=== PATIENT | female | born 1985 | race Caucasian/White ===

== ENCOUNTER 2017-08-24 17:57 | Emergency (ER) | payer OTHER ==
[~2017-08-24] VITALS: Ht 165.1 cm; Wt 100.5 kg
[~2017-08-24 17:57] MED LIST: "\\\"WATER PILL\\\""; ASCO500 PO; CALC.25 PO; CALCAVITD PO; CHOL10002 PO; Cyclobenzaprine5 MG PO; Ferosul325 MG PO; HYDR1TAB94 PO; IODPOTL TOP; LEVSOD100 PO; LEVSOD150 PO; LEVSOD50 PO; LEVSOD75 PO; LIDO700A20 TOP; LIOT50 PO; METHI10 PO; METO25ER PO; OXYACE5T PO; POTA10T PO; POTCHL20ER PO; TRAM50 PO; TUMS DUAL ACTI1 EACH; TUMS300 MG PO
[2017-08-24 18:50] LABS: BASOPHILS ABSOLUTE AUTO 0.03 K/mm3 (0.00-0.23); BASOPHILS PERCENT AUTO 0 % (0-2); EOSINOPHILS ABSOLUTE AUTO 0.17 K/mm3 (0.00-0.68); EOSINOPHILS PERCENT AUTO 2 % (0-6); Hematocrit 35.9 % (33.0-51.0); Hemoglobin 11.7 g/dL (11.5-16.0); IMMATURE GRAN ABSOLUTE AUTO 0.01 K/mm3 (0.00-0.10); IMMATURE GRAN PERCENT AUTO 0 % (0-1); LYMPHOCYTES ABSOLUTE AUTO 2.18 K/mm3 (0.84-5.20); LYMPHOCYTES PERCENT AUTO 25 % (21-46); MONOCYTES ABSOLUTE AUTO 0.32 K/mm3 (0.16-1.47); MONOCYTES PERCENT AUTO 4 % (4-13); Mean Corpuscular HGB 25.3 pg (26.0-34.0); Mean Corpuscular HGB Conc 32.6 g/dL (31.5-36.5); Mean Corpuscular Volume 78 fL (80-100); Mean Platelet Volume 9.8 fL (9.1-12.4); NEUTROPHILS ABSOLUTE AUTO 5.88 K/mm3 (1.96-9.15); NEUTROPHILS PERCENT AUTO 69 % (41-73); Platelet Count 393 K/mm3 (150-400); RDW Coefficient Variation 13.4 % (11.7-14.2); Red Blood Cell Count 4.62 M/mm3 (3.80-5.20); White Blood Cell Count 8.59 K/mm3 (4.00-11.30)
[2017-08-24 19:09] LABS: Alanine Aminotransfer (ALT/SGP 21 U/L (12-78); Albumin, Blood 3.5 g/dL (3.4-5.0); Albumin/Globulin Ratio 0.8 (0.8-1.8); Alk Phos 79 U/L (50-136); Anion Gap 10 mmol/L (6-16); Aspartate Aminotrans (AST/SGOT 22 U/L (12-37); Bilirubin, Total 0.3 mg/dL (0.1-1.0); Blood Urea Nitrogen 10 mg/dL (8-24); Bun/Creatinine Ratio 13.6 (12.0-20.0); CO2, Blood 27 mmol/L (21-32); Chloride, Blood 102 mmol/L (98-108); Creatinine, Blood 0.74 mg/dL (0.40-1.00); Free Thyroxine 0.49 ng/dL (0.70-1.60); Globulin, Blood 4.4 g/dL (2.2-4.0); Glomerular Filtration Rate >60 (60-); Glucose, Blood 99 mg/dL (70-99); Potassium, Blood 3.5 mmol/L (3.5-5.5); Sodium, Blood 139 mmol/L (136-145); Total Protein, Blood 7.9 g/dL (6.4-8.2)
[2017-08-24 19:15] LABS: Magnesium, Blood 1.8 mg/dL (1.6-2.4); Phosphorus, Blood 4.4 mg/dL (2.5-4.9); Triiodothyronine, Free 1.33 pg/mL (2.18-3.98)
== END 2017-08-24 22:51 | disposition home or self-care (01) ==
LOC: ER 17:57
PROVIDERS: Physician Assistant
DX: E20.9 Hypoparathyroidism, unspecified (principal); E03.9 Hypothyroidism, unspecified; Z79.899 Other long term (current) drug therapy; F17.290 Nicotine dependence, other tobacco product, uncomplicated
CPT/HCPCS: 80053; 83735; 83970; 84100; 84439; 84443; 84481; 85025; 93005; 93010; 96365; 96366; 96368; 99283; J0610; J3475

== ENCOUNTER → 2017-09-12 | Outpatient (CLI) | payer OTHER ==
[~2017-09-12] MED LIST changes: +Advil200 M1 PO; +Phentermine HCl30 MG PO; +TUMS200 MG PO; +Vitamin D2000 UNIT PO
[2017-09-12 11:48] LABS: BASOPHILS ABSOLUTE AUTO 0.01 K/mm3 (0.00-0.23); BASOPHILS PERCENT AUTO 0 % (0-2); EOSINOPHILS ABSOLUTE AUTO 0.03 K/mm3 (0.00-0.68); EOSINOPHILS PERCENT AUTO 1 % (0-6); Hematocrit 36.4 % (33.0-51.0); Hemoglobin 12.3 g/dL (11.5-16.0); IMMATURE GRAN ABSOLUTE AUTO 0.01 K/mm3 (0.00-0.10); IMMATURE GRAN PERCENT AUTO 0 % (0-1); LYMPHOCYTES ABSOLUTE AUTO 0.66 K/mm3 (0.84-5.20); LYMPHOCYTES PERCENT AUTO 12 % (21-46); MONOCYTES ABSOLUTE AUTO 0.35 K/mm3 (0.16-1.47); MONOCYTES PERCENT AUTO 6 % (4-13); Mean Corpuscular HGB 26.3 pg (26.0-34.0); Mean Corpuscular HGB Conc 33.8 g/dL (31.5-36.5); Mean Corpuscular Volume 78 fL (80-100); Mean Platelet Volume 9.6 fL (9.1-12.4); NEUTROPHILS ABSOLUTE AUTO 4.46 K/mm3 (1.96-9.15); NEUTROPHILS PERCENT AUTO 81 % (41-73); Platelet Count 287 K/mm3 (150-400); RDW Coefficient Variation 14.4 % (11.7-14.2); RDW Standard Deviation 40.1 fL (35.1-46.3); Red Blood Cell Count 4.68 M/mm3 (3.80-5.20); White Blood Cell Count 5.52 K/mm3 (4.00-11.30)
[2017-09-12 12:07] LABS: Alanine Aminotransfer (ALT/SGP 25 U/L (12-78); Albumin/Globulin Ratio 0.9 (0.8-1.8); Alk Phos 80 U/L (40-126); Anion Gap 12 mmol/L (6-16); Aspartate Aminotrans (AST/SGOT 20 U/L (12-37); Bilirubin, Total 0.4 mg/dL (0.1-1.0); Blood Urea Nitrogen 13 mg/dL (8-24); Bun/Creatinine Ratio 14.1 (12.0-20.0); CO2, Blood 27 mmol/L (21-32); Calcium, Blood 7.5 mg/dL (8.5-10.1); Chloride, Blood 100 mmol/L (98-108); Creatinine, Blood 0.92 mg/dL (0.40-1.00); Globulin, Blood 4.5 g/dL (2.2-4.0); Glomerular Filtration Rate >60 (60-); Glucose, Blood 94 mg/dL (70-99); Potassium, Blood 3.7 mmol/L (3.5-5.5); Sodium, Blood 139 mmol/L (136-145); Total Protein, Blood 8.5 g/dL (6.4-8.2)
== END ==
LOC: LAB SHORT 11:44 → LAB EV 11:44
PROVIDERS: General Practice
DX: E20.9 Hypoparathyroidism, unspecified (principal); R53.81 Other malaise; J02.9 Acute pharyngitis, unspecified
CPT/HCPCS: 80053; 83970; 85025; 87070

== ENCOUNTER 2018-03-09 11:10 | Inpatient (IN) | payer OTHER ==
[~2018-03-09] VITALS: Ht 165.1 cm; Wt 92.8 kg
[~2018-03-09 11:10] MED LIST changes: -Advil200 M1 PO; -Phentermine HCl30 MG PO; -TUMS200 MG PO; -Vitamin D2000 UNIT PO
[2018-03-09 11:45] LABS: Calcium, Ionized (POC) 0.69 mmol/L (1.10-1.46); Chloride (POC) 99 mmol/L (98-108); Creatinine (POC) 0.6 mg/dL (0.6-1.0); Glucose (ISTAT POC) 95 mg/dL (70-99); Hemoglobin (POC) 11.6 g/dL (12.0-16.0); Potassium (POC) 3.5 mmol/L (3.5-5.5); Sodium (POC) 140 mmol/L (135-148); Total CO2 (POC) 25 mmol/L (21-32)
[2018-03-09] MEDS ORDERED: CALC.25 PO (11:55)
[2018-03-09] MEDS ORDERED: Phentermine HCl30 MG PO (11:56)
[2018-03-09 12:11] LABS: Magnesium, Blood 1.7 mg/dL (1.6-2.4); Thyroxine (T4) 12.1 ug/dL (4.8-13.9)
[2018-03-09 12:14] LABS: Thyroid Stimulating Hormone 0.087 uIU/mL (0.360-4.800)
[2018-03-09 12:17] LABS: Alanine Aminotransfer (ALT/SGP 22 U/L (12-78); Albumin, Blood 3.3 g/dL (3.4-5.0); Albumin/Globulin Ratio 0.8 (0.8-1.8); Alk Phos 67 U/L (50-136); Anion Gap 10 mmol/L (6-16); Aspartate Aminotrans (AST/SGOT 18 U/L (12-37); Bilirubin, Total 0.3 mg/dL (0.1-1.0); Blood Urea Nitrogen 12 mg/dL (8-24); Bun/Creatinine Ratio 19.7 (12.0-20.0); CO2, Blood 26 mmol/L (21-32); Calcium, Blood 5.4 mg/dL (8.5-10.1); Chloride, Blood 104 mmol/L (98-108); Creatinine, Blood 0.61 mg/dL (0.40-1.00); Globulin, Blood 4.3 g/dL (2.2-4.0); Glomerular Filtration Rate >60 (60-); Glucose, Blood 89 mg/dL (70-99); Phosphorus, Blood 4.9 mg/dL (2.5-4.9); Potassium, Blood 3.6 mmol/L (3.5-5.5); Sodium, Blood 140 mmol/L (136-145); Total Protein, Blood 7.6 g/dL (6.4-8.2)
[2018-03-09] MEDS ORDERED: TUMS200 MG PO (14:36)
[2018-03-10 05:54] LABS: Anion Gap 8 mmol/L (6-16); Blood Urea Nitrogen 10 mg/dL (8-24); Bun/Creatinine Ratio 13.8 (12.0-20.0); CO2, Blood 30 mmol/L (21-32); Calcium, Blood 6.9 mg/dL (8.5-10.1); Chloride, Blood 103 mmol/L (98-108); Creatinine, Blood 0.72 mg/dL (0.40-1.00); Glomerular Filtration Rate >60 (60-); Glucose, Blood 80 mg/dL (70-99); Magnesium, Blood 1.8 mg/dL (1.6-2.4); Potassium, Blood 3.2 mmol/L (3.5-5.5); Sodium, Blood 141 mmol/L (136-145)
[2018-03-11 05:49] LABS: Albumin, Blood 3.2 g/dL (3.4-5.0); Anion Gap 7 mmol/L (6-16); Blood Urea Nitrogen 8 mg/dL (8-24); Bun/Creatinine Ratio 11.3 (12.0-20.0); CO2, Blood 30 mmol/L (21-32); Chloride, Blood 102 mmol/L (98-108); Creatinine, Blood 0.71 mg/dL (0.40-1.00); Glomerular Filtration Rate >60 (60-); Glucose, Blood 91 mg/dL (70-99); Phosphorus, Blood 6.2 mg/dL (2.5-4.9); Potassium, Blood 3.9 mmol/L (3.5-5.5); Sodium, Blood 139 mmol/L (136-145)
[2018-03-11] MEDS ORDERED: Vitamin D2000 UNIT PO (10:03)
[2018-03-11] MEDS ORDERED: Advil200 M1 PO (10:03)
== END 2018-03-11 10:22 | disposition home or self-care (01) | DRG 641 ==
LOC: ER 11:10 → MEDS 11:11 → ENPENDDIS 03-11 09:38 → MEDS 03-11 10:22
PROVIDERS: Hospitalist; Internal Medicine; Physician Assistant
DX: E83.51 Hypocalcemia (principal); N25.81 Secondary hyperparathyroidism of renal origin; G43.909 Migraine, unspecified, not intractable, without status migrainosus; E55.9 Vitamin D deficiency, unspecified; E89.0 Postprocedural hypothyroidism; F17.210 Nicotine dependence, cigarettes, uncomplicated; Z79.899 Other long term (current) drug therapy
CPT/HCPCS: 36415; 80047; 80048; 80053; 80069; 82306; 82330; 83735; 84100; 84436; 84443; 85014; 93005; 93010; 96365; 96375; 99285-25; G0378; J0610; J2405; J2765; J3360; J7030

== ENCOUNTER 2018-07-13 11:44 | Emergency (ER) | payer OTHER ==
[~2018-07-13] VITALS: Ht 167.6 cm; Wt 99.8 kg
[~2018-07-13 11:44] MED LIST changes: +Advil200 M1 PO; +Phentermine HCl30 MG PO; +TUMS200 MG PO; +Vitamin D2000 UNIT PO
[2018-07-13 12:27] LABS: BASOPHILS ABSOLUTE AUTO 0.03 K/mm3 (0.00-0.23); BASOPHILS PERCENT AUTO 1 % (0-2); EOSINOPHILS ABSOLUTE AUTO 0.09 K/mm3 (0.00-0.68); EOSINOPHILS PERCENT AUTO 2 % (0-6); IMMATURE GRAN ABSOLUTE AUTO 0.02 K/mm3 (0.00-0.10); IMMATURE GRAN PERCENT AUTO 0 % (0-1); LYMPHOCYTES ABSOLUTE AUTO 1.52 K/mm3 (0.84-5.20); LYMPHOCYTES PERCENT AUTO 26 % (21-46); MONOCYTES ABSOLUTE AUTO 0.25 K/mm3 (0.16-1.47); MONOCYTES PERCENT AUTO 4 % (4-13); Mean Corpuscular HGB 27.3 pg (26.0-34.0); Mean Corpuscular HGB Conc 32.4 g/dL (31.5-36.5); Mean Corpuscular Volume 84 fL (80-100); Mean Platelet Volume 9.5 fL (9.1-12.4); NEUTROPHILS ABSOLUTE AUTO 4.03 K/mm3 (1.96-9.15); NEUTROPHILS PERCENT AUTO 68 % (41-73); Platelet Count 309 K/mm3 (150-400); RDW Coefficient Variation 14.1 % (11.7-14.2); RDW Standard Deviation 43.5 fL (35.1-46.3); White Blood Cell Count 5.94 K/mm3 (4.00-11.30)
[2018-07-13 12:54] LABS: Alanine Aminotransfer (ALT/SGP 18 U/L (12-78); Albumin, Blood 3.7 g/dL (3.4-5.0); Albumin/Globulin Ratio 0.8 (0.8-1.8); Alk Phos 76 U/L (50-136); Anion Gap 8 mmol/L (6-16); Aspartate Aminotrans (AST/SGOT 19 U/L (12-37); Bilirubin, Total 0.4 mg/dL (0.1-1.0); Blood Urea Nitrogen 12 mg/dL (8-24); CO2, Blood 28 mmol/L (21-32); Calcium, Blood 6.1 mg/dL (8.5-10.1); Chloride, Blood 103 mmol/L (98-108); Creatinine, Blood 0.86 mg/dL (0.40-1.00); Free Thyroxine 0.71 ng/dL (0.70-1.60); Globulin, Blood 4.4 g/dL (2.2-4.0); Glomerular Filtration Rate >60 (60-); Glucose, Blood 84 mg/dL (70-99); Potassium, Blood 3.9 mmol/L (3.5-5.5); Sodium, Blood 139 mmol/L (136-145); Total Protein, Blood 8.1 g/dL (6.4-8.2)
[2018-07-13] MEDS ORDERED: MECL12.5 PO (15:30)
== END 2018-07-13 15:43 | disposition home or self-care (01) ==
LOC: ER 11:44
PROVIDERS: Physician Assistant
DX: E20.9 Hypoparathyroidism, unspecified (principal); E05.00 Thyrotoxicosis with diffuse goiter without thyrotoxic crisis or storm; E89.0 Postprocedural hypothyroidism; F17.210 Nicotine dependence, cigarettes, uncomplicated
CPT/HCPCS: 36415; 80053; 84439; 84443; 85025; 93005; 93010; 96365; 96375; 99284-25; J0610; J2405; J7030

== ENCOUNTER 2018-07-16 00:03 | Day surgery (SDC) | payer OTHER ==
[~2018-07-16 00:03] MED LIST changes: +MECL12.5 PO
[2018-07-16] MEDS ORDERED: CALCIUM CITRAT PO (14:24)
== END 2018-07-16 15:55 | disposition home or self-care (01) ==
LOC: ATC 00:03
DX: E83.51 Hypocalcemia (principal)
CPT/HCPCS: 82310; 96365; J0610; J7030

== ENCOUNTER 2018-07-30 00:15 | Day surgery (SDC) | payer OTHER ==
[~2018-07-30 00:15] MED LIST changes: +CALCIUM CITRAT PO
== END 2018-07-30 11:40 | disposition home or self-care (01) ==
LOC: ATC 00:15
DX: E83.51 Hypocalcemia (principal); E03.9 Hypothyroidism, unspecified
CPT/HCPCS: 96365; J0610; J7030

== ENCOUNTER 2018-08-14 07:30 | Day surgery (SDC) | payer OTHER | END 2018-08-14 11:05 | disposition home or self-care (01) | LOC: ATC 07:30 | DX: E83.51 Hypocalcemia (principal) | CPT/HCPCS: 96365; J0610; J7030 ==

== ENCOUNTER 2018-08-28 00:24 | Day surgery (SDC) | payer OTHER | END 2018-08-28 10:47 | disposition home or self-care (01) | LOC: ATC 00:24 | DX: E83.51 Hypocalcemia (principal); E03.9 Hypothyroidism, unspecified | CPT/HCPCS: 82310; 96365; J0610; J7030 ==

== ENCOUNTER 2018-09-04 18:05 | Emergency (ER) | payer OTHER ==
[~2018-09-04] VITALS: Ht 165.1 cm; Wt 96.2 kg
[2018-09-04 18:39] LABS: BASOPHILS ABSOLUTE AUTO 0.03 K/mm3 (0.00-0.23); BASOPHILS PERCENT AUTO 0 % (0-2); EOSINOPHILS ABSOLUTE AUTO 0.09 K/mm3 (0.00-0.68); EOSINOPHILS PERCENT AUTO 1 % (0-6); Hemoglobin 11.9 g/dL (11.5-16.0); IMMATURE GRAN ABSOLUTE AUTO 0.01 K/mm3 (0.00-0.10); IMMATURE GRAN PERCENT AUTO 0 % (0-1); LYMPHOCYTES ABSOLUTE AUTO 1.98 K/mm3 (0.84-5.20); LYMPHOCYTES PERCENT AUTO 28 % (21-46); MONOCYTES ABSOLUTE AUTO 0.43 K/mm3 (0.16-1.47); MONOCYTES PERCENT AUTO 6 % (4-13); Mean Corpuscular HGB 28.3 pg (26.0-34.0); Mean Corpuscular HGB Conc 33.1 g/dL (31.5-36.5); Mean Corpuscular Volume 86 fL (80-100); Mean Platelet Volume 9.5 fL (9.1-12.4); NEUTROPHILS ABSOLUTE AUTO 4.58 K/mm3 (1.96-9.15); NEUTROPHILS PERCENT AUTO 64 % (41-73); Platelet Count 303 K/mm3 (150-400); RDW Coefficient Variation 13.2 % (11.7-14.2); White Blood Cell Count 7.12 K/mm3 (4.00-11.30)
[2018-09-04 19:20] LABS: Alanine Aminotransfer (ALT/SGP 17 U/L (12-78); Albumin, Blood 4.1 g/dL (3.4-5.0); Albumin/Globulin Ratio 0.9 (0.8-1.8); Alk Phos 75 U/L (50-136); Anion Gap 7 mmol/L (6-16); Aspartate Aminotrans (AST/SGOT 19 U/L (12-37); Bilirubin, Total 0.5 mg/dL (0.1-1.0); Blood Urea Nitrogen 15 mg/dL (8-24); Bun/Creatinine Ratio 18.5 (12.0-20.0); CO2, Blood 29 mmol/L (21-32); Calcium, Blood 6.3 mg/dL (8.5-10.1); Chloride, Blood 99 mmol/L (98-108); Creatinine, Blood 0.81 mg/dL (0.40-1.00); Globulin, Blood 4.4 g/dL (2.2-4.0); Glomerular Filtration Rate >60 (60-); Glucose, Blood 83 mg/dL (70-99); Potassium, Blood 3.7 mmol/L (3.5-5.5); Sodium, Blood 135 mmol/L (136-145); Total Protein, Blood 8.5 g/dL (6.4-8.2); Troponin I <0.015 ng/mL (0.000-0.040)
[2018-09-04] MEDS ORDERED: Adipex-P37.5 MG PO (19:27)
[2018-09-04] MEDS ORDERED: NAPR550 PO (22:21)
== END 2018-09-04 22:34 | disposition home or self-care (01) ==
LOC: ER 18:05
PROVIDERS: Physician Assistant
DX: R09.1 Pleurisy (principal); E83.51 Hypocalcemia; Z79.899 Other long term (current) drug therapy; G43.909 Migraine, unspecified, not intractable, without status migrainosus
CPT/HCPCS: 36415; 71046; 71260; 80053; 84484; 85025; 93005; 93010; J0610; J1885; Q9967

== ENCOUNTER 2018-09-11 00:08 | Day surgery (SDC) | payer OTHER ==
[~2018-09-11 00:08] MED LIST changes: +Adipex-P37.5 MG PO; +NAPR550 PO
== END 2018-09-11 10:30 | disposition home or self-care (01) ==
LOC: ATC 00:08
DX: E83.51 Hypocalcemia (principal); E03.9 Hypothyroidism, unspecified
CPT/HCPCS: 96365; J0610; J7030

== ENCOUNTER 2018-10-15 00:58 | Day surgery (SDC) | payer OTHER ==
--- NOTE | 2018-10-15 08:51 | NUR ---
PT BECAME DIAPHORETIC WITH IV START. HANDS CRAMPED, PT STS THIS HAPPENS WITH HER LOW CA LEVEL. DIAPHORESIS RESOLVED. IV INFUSING NOW, CRAMPS LESSENING.
== END 2018-10-15 22:37 | disposition home or self-care (01) ==
LOC: ATC 00:58
DX: E83.51 Hypocalcemia (principal); E03.9 Hypothyroidism, unspecified; Z79.899 Other long term (current) drug therapy
CPT/HCPCS: 96365; J0610; J7030

== ENCOUNTER 2018-10-28 00:27 | Day surgery (SDC) | payer OTHER ==
[2018-10-28 09:56] LABS: Anion Gap 10 mmol/L (6-16); Blood Urea Nitrogen 14 mg/dL (8-24); CO2, Blood 27 mmol/L (21-32); Calcium, Blood 5.4 mg/dL (8.5-10.1); Chloride, Blood 103 mmol/L (98-108); Creatinine, Blood 0.87 mg/dL (0.40-1.00); Glomerular Filtration Rate >60 (60-); Glucose, Blood 105 mg/dL (70-99); Potassium, Blood 3.6 mmol/L (3.5-5.5); Sodium, Blood 140 mmol/L (136-145)
== END 2018-10-28 11:44 | disposition home or self-care (01) ==
LOC: ATC 00:27
PROVIDERS: Internal Medicine Endocrinology, Diabetes & Metabolism
DX: E83.51 Hypocalcemia (principal)
CPT/HCPCS: 80048; 96365; J0610; J7030

== ENCOUNTER 2018-11-11 00:01 | Day surgery (SDC) | payer OTHER | END 2018-11-11 11:05 | disposition home or self-care (01) | LOC: ATC 00:01 | DX: E83.51 Hypocalcemia (principal) | CPT/HCPCS: 96365; J0610; J7030 ==

== ENCOUNTER 2018-12-21 00:12 | Day surgery (SDC) | payer OTHER ==
[~2018-12-21 00:12] MED LIST changes: -LEVSOD150 PO; -TUMS200 MG PO; -Vitamin D2000 UNIT PO
[2018-12-21] MEDS ORDERED: Calcium Citrat250 MG PO (09:39)
[2018-12-21] MEDS ORDERED: NAPR500 PO (09:40)
[2018-12-21 10:08] LABS: Anion Gap 6 mmol/L (6-16); Blood Urea Nitrogen 20 mg/dL (8-24); Bun/Creatinine Ratio 21.5 (12.0-20.0); CO2, Blood 28 mmol/L (21-32); Chloride, Blood 105 mmol/L (98-108); Creatinine, Blood 0.93 mg/dL (0.40-1.00); Glomerular Filtration Rate >60 (60-); Glucose, Blood 83 mg/dL (70-99); Potassium, Blood 4.1 mmol/L (3.5-5.5); Sodium, Blood 139 mmol/L (136-145)
[2018-12-21 10:10] LABS: Calcium, Blood 5.5 mg/dL (8.5-10.1)
[2018-12-21 10:15] LABS: Albumin, Blood 3.4 g/dL (3.4-5.0); Anion Gap 7 mmol/L (6-16); Blood Urea Nitrogen 18 mg/dL (8-24); Bun/Creatinine Ratio 19.2 (12.0-20.0); CO2, Blood 27 mmol/L (21-32); Calcium, Blood 5.5 mg/dL (8.5-10.1); Chloride, Blood 104 mmol/L (98-108); Creatinine, Blood 0.94 mg/dL (0.40-1.00); Glomerular Filtration Rate >60 (60-); Glucose, Blood 82 mg/dL (70-99); Phosphorus, Blood 5.6 mg/dL (2.5-4.9); Potassium, Blood 4.1 mmol/L (3.5-5.5); Sodium, Blood 138 mmol/L (136-145)
[2019-04-25] MEDS ORDERED: [UNRECOGNIZED DRUG - REMARK] PT (21:00)
[2019-04-25] MEDS ORDERED: ELIQUIS5 MG PT (21:01)
[2019-04-25] MEDS ORDERED: Calcitriol0.5 MCG PO (21:02)
[2019-04-25] MEDS ORDERED: Calcium Carbon500 M1 PT (21:02)
[2019-04-25] MEDS ORDERED: LEVO-T300 MCG PT (21:03)
[2019-04-25] MEDS ORDERED: SUPPORT237 ML PO (21:05)
[2019-04-25] MEDS ORDERED: OMEP20ER PO (21:05)
[2019-04-25] MEDS ORDERED: ONDA4ODT SL (21:06)
[2019-04-25] MEDS ORDERED: MIRALAX17 GM PT (21:08)
[2019-04-25] MEDS ORDERED: OXYC1L PT (21:08)
[2019-04-25] MEDS ORDERED: LITTLE REM40 MG/0.6 PT (21:09)
[2019-04-29] MEDS ORDERED: ACET325 PO (12:00)
[2019-04-29] MEDS ORDERED: PROC25S PR (12:01)
[2019-04-29] MEDS ORDERED: PROM25S PR (12:01)
== END 2018-12-21 11:47 | disposition home or self-care (01) ==
LOC: ATC 00:12
PROVIDERS: Internal Medicine Endocrinology, Diabetes & Metabolism
DX: E83.51 Hypocalcemia (principal); E03.9 Hypothyroidism, unspecified; Z79.899 Other long term (current) drug therapy
CPT/HCPCS: 80048; 80069; 82306; 96365; J0610; J7050

== ENCOUNTER 2019-01-05 03:02 | Day surgery (SDC) | payer OTHER ==
[~2019-01-05 03:02] MED LIST changes: +Calcium Citrat250 MG PO; +NAPR500 PO
[2019-01-05 10:46] LABS: Anion Gap 8 mmol/L (6-16); Blood Urea Nitrogen 12 mg/dL (8-24); Bun/Creatinine Ratio 16.1 (12.0-20.0); CO2, Blood 28 mmol/L (21-32); Chloride, Blood 103 mmol/L (98-108); Creatinine, Blood 0.75 mg/dL (0.40-1.00); Glomerular Filtration Rate >60 (60-); Glucose, Blood 91 mg/dL (70-99); Potassium, Blood 3.6 mmol/L (3.5-5.5); Sodium, Blood 139 mmol/L (136-145)
[2019-01-05 10:50] LABS: Calcium, Blood 5.5 mg/dL (8.5-10.1)
[2019-04-25] MEDS ORDERED: [UNRECOGNIZED DRUG - REMARK] PT (21:00)
[2019-04-25] MEDS ORDERED: ELIQUIS5 MG PT (21:01)
[2019-04-25] MEDS ORDERED: Calcitriol0.5 MCG PO (21:02)
[2019-04-25] MEDS ORDERED: Calcium Carbon500 M1 PT (21:02)
[2019-04-25] MEDS ORDERED: LEVO-T300 MCG PT (21:03)
[2019-04-25] MEDS ORDERED: OMEP20ER PO (21:05)
[2019-04-25] MEDS ORDERED: SUPPORT237 ML PO (21:05)
[2019-04-25] MEDS ORDERED: ONDA4ODT SL (21:06)
[2019-04-25] MEDS ORDERED: MIRALAX17 GM PT (21:08)
[2019-04-25] MEDS ORDERED: OXYC1L PT (21:08)
[2019-04-25] MEDS ORDERED: LITTLE REM40 MG/0.6 PT (21:09)
[2019-04-29] MEDS ORDERED: ACET325 PO (12:00)
[2019-04-29] MEDS ORDERED: PROC25S PR (12:01)
[2019-04-29] MEDS ORDERED: PROM25S PR (12:01)
== END 2019-01-05 12:07 | disposition home or self-care (01) ==
LOC: ATC 03:02
PROVIDERS: Internal Medicine Endocrinology, Diabetes & Metabolism
DX: E83.51 Hypocalcemia (principal); E03.9 Hypothyroidism, unspecified; Z79.899 Other long term (current) drug therapy
CPT/HCPCS: 80048; 96365; J0610; J7050

== ENCOUNTER 2019-01-19 00:19 | Day surgery (SDC) | payer OTHER ==
[2019-01-19 10:14] LABS: Anion Gap 9 mmol/L (6-16); Blood Urea Nitrogen 16 mg/dL (8-24); Bun/Creatinine Ratio 19.2 (12.0-20.0); CO2, Blood 24 mmol/L (21-32); Calcium, Blood 6.3 mg/dL (8.5-10.1); Chloride, Blood 104 mmol/L (98-108); Creatinine, Blood 0.83 mg/dL (0.40-1.00); Glomerular Filtration Rate >60 (60-); Glucose, Blood 88 mg/dL (70-99); Sodium, Blood 137 mmol/L (136-145)
[2019-04-25] MEDS ORDERED: [UNRECOGNIZED DRUG - REMARK] PT (21:00)
[2019-04-25] MEDS ORDERED: ELIQUIS5 MG PT (21:01)
[2019-04-25] MEDS ORDERED: Calcitriol0.5 MCG PO (21:02)
[2019-04-25] MEDS ORDERED: Calcium Carbon500 M1 PT (21:02)
[2019-04-25] MEDS ORDERED: LEVO-T300 MCG PT (21:03)
[2019-04-25] MEDS ORDERED: SUPPORT237 ML PO (21:05)
[2019-04-25] MEDS ORDERED: OMEP20ER PO (21:05)
[2019-04-25] MEDS ORDERED: ONDA4ODT SL (21:06)
[2019-04-25] MEDS ORDERED: MIRALAX17 GM PT (21:08)
[2019-04-25] MEDS ORDERED: OXYC1L PT (21:08)
[2019-04-25] MEDS ORDERED: LITTLE REM40 MG/0.6 PT (21:09)
[2019-04-29] MEDS ORDERED: ACET325 PO (12:00)
[2019-04-29] MEDS ORDERED: PROM25S PR (12:01)
[2019-04-29] MEDS ORDERED: PROC25S PR (12:01)
== END 2019-01-19 11:52 | disposition home or self-care (01) ==
LOC: ATC 00:19
PROVIDERS: Internal Medicine Endocrinology, Diabetes & Metabolism
DX: E83.51 Hypocalcemia (principal); E03.9 Hypothyroidism, unspecified; Z79.899 Other long term (current) drug therapy
CPT/HCPCS: 80048; 96365; J0610; J7050

== ENCOUNTER 2019-02-01 00:10 | Day surgery (SDC) | payer OTHER ==
[2019-02-01 10:20] LABS: Albumin, Blood 3.4 g/dL (3.4-5.0); Anion Gap 7 mmol/L (6-16); Blood Urea Nitrogen 14 mg/dL (8-24); Bun/Creatinine Ratio 20.3 (12.0-20.0); CO2, Blood 27 mmol/L (21-32); Calcium, Blood 6.1 mg/dL (8.5-10.1); Chloride, Blood 104 mmol/L (98-108); Creatinine, Blood 0.69 mg/dL (0.40-1.00); Glomerular Filtration Rate >60 (60-); Glucose, Blood 96 mg/dL (70-99); Phosphorus, Blood 4.9 mg/dL (2.5-4.9); Potassium, Blood 3.5 mmol/L (3.5-5.5); Sodium, Blood 138 mmol/L (136-145)
[2019-02-01 10:23] LABS: Albumin, Blood 3.5 g/dL (3.4-5.0); Anion Gap 6 mmol/L (6-16); Blood Urea Nitrogen 14 mg/dL (8-24); Bun/Creatinine Ratio 20.1 (12.0-20.0); CO2, Blood 27 mmol/L (21-32); Calcium, Blood 6.1 mg/dL (8.5-10.1); Chloride, Blood 105 mmol/L (98-108); Glomerular Filtration Rate >60 (60-); Glucose, Blood 96 mg/dL (70-99); Potassium, Blood 3.5 mmol/L (3.5-5.5); Sodium, Blood 138 mmol/L (136-145)
[2019-04-25] MEDS ORDERED: [UNRECOGNIZED DRUG - REMARK] PT (21:00)
[2019-04-25] MEDS ORDERED: ELIQUIS5 MG PT (21:01)
[2019-04-25] MEDS ORDERED: Calcium Carbon500 M1 PT (21:02)
[2019-04-25] MEDS ORDERED: Calcitriol0.5 MCG PO (21:02)
[2019-04-25] MEDS ORDERED: LEVO-T300 MCG PT (21:03)
[2019-04-25] MEDS ORDERED: SUPPORT237 ML PO (21:05)
[2019-04-25] MEDS ORDERED: OMEP20ER PO (21:05)
[2019-04-25] MEDS ORDERED: ONDA4ODT SL (21:06)
[2019-04-25] MEDS ORDERED: MIRALAX17 GM PT (21:08)
[2019-04-25] MEDS ORDERED: OXYC1L PT (21:08)
[2019-04-25] MEDS ORDERED: LITTLE REM40 MG/0.6 PT (21:09)
[2019-04-29] MEDS ORDERED: ACET325 PO (12:00)
[2019-04-29] MEDS ORDERED: PROM25S PR (12:01)
[2019-04-29] MEDS ORDERED: PROC25S PR (12:01)
== END 2019-02-01 12:03 | disposition home or self-care (01) ==
LOC: ATC 00:10
PROVIDERS: Internal Medicine Endocrinology, Diabetes & Metabolism
DX: E83.51 Hypocalcemia (principal); E03.9 Hypothyroidism, unspecified; E89.2 Postprocedural hypoparathyroidism; Z79.899 Other long term (current) drug therapy
CPT/HCPCS: 80069; 96365; J0610; J7050

== ENCOUNTER 2019-02-15 00:06 | Day surgery (SDC) | payer OTHER ==
[2019-02-15 10:28] LABS: Anion Gap 7 mmol/L (6-16); Blood Urea Nitrogen 15 mg/dL (8-24); Bun/Creatinine Ratio 19.5 (12.0-20.0); CO2, Blood 26 mmol/L (21-32); Calcium, Blood 6.3 mg/dL (8.5-10.1); Chloride, Blood 106 mmol/L (98-108); Creatinine, Blood 0.77 mg/dL (0.40-1.00); Glomerular Filtration Rate >60 (60-); Glucose, Blood 90 mg/dL (70-99); Potassium, Blood 3.6 mmol/L (3.5-5.5); Sodium, Blood 139 mmol/L (136-145)
[2019-04-25] MEDS ORDERED: [UNRECOGNIZED DRUG - REMARK] PT (21:00)
[2019-04-25] MEDS ORDERED: ELIQUIS5 MG PT (21:01)
[2019-04-25] MEDS ORDERED: Calcitriol0.5 MCG PO (21:02)
[2019-04-25] MEDS ORDERED: Calcium Carbon500 M1 PT (21:02)
[2019-04-25] MEDS ORDERED: LEVO-T300 MCG PT (21:03)
[2019-04-25] MEDS ORDERED: SUPPORT237 ML PO (21:05)
[2019-04-25] MEDS ORDERED: OMEP20ER PO (21:05)
[2019-04-25] MEDS ORDERED: ONDA4ODT SL (21:06)
[2019-04-25] MEDS ORDERED: OXYC1L PT (21:08)
[2019-04-25] MEDS ORDERED: MIRALAX17 GM PT (21:08)
[2019-04-25] MEDS ORDERED: LITTLE REM40 MG/0.6 PT (21:09)
[2019-04-29] MEDS ORDERED: ACET325 PO (12:00)
[2019-04-29] MEDS ORDERED: PROM25S PR (12:01)
[2019-04-29] MEDS ORDERED: PROC25S PR (12:01)
== END 2019-02-15 11:55 | disposition home or self-care (01) ==
LOC: ATC 00:06
PROVIDERS: Internal Medicine Endocrinology, Diabetes & Metabolism
DX: E83.51 Hypocalcemia (principal); E89.2 Postprocedural hypoparathyroidism
CPT/HCPCS: 80048; 96365; J0610; J7050

== ENCOUNTER 2019-03-01 00:07 | Day surgery (SDC) | payer OTHER ==
[2019-04-25] MEDS ORDERED: [UNRECOGNIZED DRUG - REMARK] PT (21:00)
[2019-04-25] MEDS ORDERED: ELIQUIS5 MG PT (21:01)
[2019-04-25] MEDS ORDERED: Calcitriol0.5 MCG PO (21:02)
[2019-04-25] MEDS ORDERED: Calcium Carbon500 M1 PT (21:02)
[2019-04-25] MEDS ORDERED: LEVO-T300 MCG PT (21:03)
[2019-04-25] MEDS ORDERED: OMEP20ER PO (21:05)
[2019-04-25] MEDS ORDERED: SUPPORT237 ML PO (21:05)
[2019-04-25] MEDS ORDERED: ONDA4ODT SL (21:06)
[2019-04-25] MEDS ORDERED: MIRALAX17 GM PT (21:08)
[2019-04-25] MEDS ORDERED: OXYC1L PT (21:08)
[2019-04-25] MEDS ORDERED: LITTLE REM40 MG/0.6 PT (21:09)
[2019-04-29] MEDS ORDERED: ACET325 PO (12:00)
[2019-04-29] MEDS ORDERED: PROM25S PR (12:01)
[2019-04-29] MEDS ORDERED: PROC25S PR (12:01)
== END 2019-03-01 11:35 | disposition home or self-care (01) ==
LOC: ATC 00:07
DX: E83.51 Hypocalcemia (principal); E03.9 Hypothyroidism, unspecified; Z79.899 Other long term (current) drug therapy
CPT/HCPCS: 82310; 96365; 96366; J0610; J7040

== ENCOUNTER 2019-03-17 00:14 | Day surgery (SDC) | payer OTHER ==
[2019-04-25] MEDS ORDERED: [UNRECOGNIZED DRUG - REMARK] PT (21:00)
[2019-04-25] MEDS ORDERED: ELIQUIS5 MG PT (21:01)
[2019-04-25] MEDS ORDERED: Calcium Carbon500 M1 PT (21:02)
[2019-04-25] MEDS ORDERED: Calcitriol0.5 MCG PO (21:02)
[2019-04-25] MEDS ORDERED: LEVO-T300 MCG PT (21:03)
[2019-04-25] MEDS ORDERED: SUPPORT237 ML PO (21:05)
[2019-04-25] MEDS ORDERED: OMEP20ER PO (21:05)
[2019-04-25] MEDS ORDERED: ONDA4ODT SL (21:06)
[2019-04-25] MEDS ORDERED: OXYC1L PT (21:08)
[2019-04-25] MEDS ORDERED: MIRALAX17 GM PT (21:08)
[2019-04-25] MEDS ORDERED: LITTLE REM40 MG/0.6 PT (21:09)
[2019-04-29] MEDS ORDERED: ACET325 PO (12:00)
[2019-04-29] MEDS ORDERED: PROC25S PR (12:01)
[2019-04-29] MEDS ORDERED: PROM25S PR (12:01)
== END 2019-03-17 12:08 | disposition home or self-care (01) ==
LOC: ATC 00:14
DX: E83.51 Hypocalcemia (principal); E03.9 Hypothyroidism, unspecified; Z79.899 Other long term (current) drug therapy
CPT/HCPCS: 82310; 96365; J0610; J7040

== ENCOUNTER 2019-03-29 00:05 | Day surgery (SDC) | payer OTHER ==
[2019-03-29 10:16] LABS: Anion Gap 10 mmol/L (6-16); Blood Urea Nitrogen 17 mg/dL (8-24); Bun/Creatinine Ratio 23.9 (12.0-20.0); CO2, Blood 26 mmol/L (21-32); Chloride, Blood 101 mmol/L (98-108); Creatinine, Blood 0.71 mg/dL (0.40-1.00); Glomerular Filtration Rate >60 (60-); Glucose, Blood 86 mg/dL (70-99); Potassium, Blood 3.9 mmol/L (3.5-5.5); Sodium, Blood 137 mmol/L (136-145)
--- NOTE | 2019-03-29 12:25 | NUR ---
LAB RESULTS FROM TODAY FAXED TO DR. MAIN'S OFFICE.
[2019-04-25] MEDS ORDERED: [UNRECOGNIZED DRUG - REMARK] PT (21:00)
[2019-04-25] MEDS ORDERED: ELIQUIS5 MG PT (21:01)
[2019-04-25] MEDS ORDERED: Calcium Carbon500 M1 PT (21:02)
[2019-04-25] MEDS ORDERED: Calcitriol0.5 MCG PO (21:02)
[2019-04-25] MEDS ORDERED: LEVO-T300 MCG PT (21:03)
[2019-04-25] MEDS ORDERED: SUPPORT237 ML PO (21:05)
[2019-04-25] MEDS ORDERED: OMEP20ER PO (21:05)
[2019-04-25] MEDS ORDERED: ONDA4ODT SL (21:06)
[2019-04-25] MEDS ORDERED: MIRALAX17 GM PT (21:08)
[2019-04-25] MEDS ORDERED: OXYC1L PT (21:08)
[2019-04-25] MEDS ORDERED: LITTLE REM40 MG/0.6 PT (21:09)
[2019-04-29] MEDS ORDERED: ACET325 PO (12:00)
[2019-04-29] MEDS ORDERED: PROC25S PR (12:01)
[2019-04-29] MEDS ORDERED: PROM25S PR (12:01)
== END 2019-03-29 12:16 | disposition home or self-care (01) ==
LOC: ATC 00:05
PROVIDERS: Internal Medicine Endocrinology, Diabetes & Metabolism
DX: E83.51 Hypocalcemia (principal); E03.9 Hypothyroidism, unspecified; Z79.899 Other long term (current) drug therapy
CPT/HCPCS: 80048; 96365; J0610; J7040

== ENCOUNTER 2019-04-11 17:43 | Inpatient (IN) | payer OTHER ==
[~2019-04-11] VITALS: Ht 162.6 cm; Wt 90.6 kg
[2019-04-11 18:16] LABS: BASOPHILS ABSOLUTE AUTO 0.04 K/mm3 (0.00-0.23); BASOPHILS PERCENT AUTO 0 % (0-2); EOSINOPHILS ABSOLUTE AUTO 0.18 K/mm3 (0.00-0.68); EOSINOPHILS PERCENT AUTO 2 % (0-6); Hematocrit 36.2 % (33.0-51.0); Mean Corpuscular HGB 25.6 pg (26.0-34.0); Mean Corpuscular HGB Conc 33.1 g/dL (31.5-36.5); Mean Corpuscular Volume 77 fL (80-100); Mean Platelet Volume 12.2 fL (9.1-12.4); Platelet Count 158 K/mm3 (150-400); RDW Coefficient Variation 13.8 % (11.7-14.2); Red Blood Cell Count 4.68 M/mm3 (3.80-5.20); White Blood Cell Count 9.81 K/mm3 (4.00-11.30)
[2019-04-11 18:17] LABS: IMMATURE GRAN ABSOLUTE AUTO 0.17 K/mm3 (0.00-0.10); IMMATURE GRAN PERCENT AUTO 2 % (0-1); LYMPHOCYTES ABSOLUTE AUTO 2.58 K/mm3 (0.84-5.20); LYMPHOCYTES PERCENT AUTO 26 % (21-46); MONOCYTES ABSOLUTE AUTO 1.39 K/mm3 (0.16-1.47); MONOCYTES PERCENT AUTO 14 % (4-13); NEUTROPHILS ABSOLUTE AUTO 5.45 K/mm3 (1.96-9.15); NEUTROPHILS PERCENT AUTO 56 % (41-73)
[2019-04-11 19:06] LABS: Alanine Aminotransfer (ALT/SGP 73 U/L (12-78); Albumin, Blood 2.8 g/dL (3.4-5.0); Albumin/Globulin Ratio 0.6 (0.8-1.8); Alk Phos 268 U/L (50-136); Anion Gap 12 mmol/L (6-16); Aspartate Aminotrans (AST/SGOT 39 U/L (12-37); Bilirubin, Total 1.7 mg/dL (0.1-1.0); Blood Urea Nitrogen 8 mg/dL (8-24); Bun/Creatinine Ratio 11.7 (12.0-20.0); CO2, Blood 16 mmol/L (21-32); Calcium, Blood 6.4 mg/dL (8.5-10.1); Chloride, Blood 106 mmol/L (98-108); Creatinine, Blood 0.68 mg/dL (0.40-1.00); Globulin, Blood 4.9 g/dL (2.2-4.0); Glomerular Filtration Rate >60 (60-); Glucose, Blood 96 mg/dL (70-99); Potassium, Blood 3.2 mmol/L (3.5-5.5); Sodium, Blood 134 mmol/L (136-145); Total Protein, Blood 7.7 g/dL (6.4-8.2)
[2019-04-11] MEDS ORDERED: Calcitriol0.5 MCG PO (20:05)
[2019-04-11] MEDS ORDERED: LIDOCAINE HCL30 ML TOP (20:05)
[2019-04-11] MEDS ORDERED: LEVO-T300 MCG PO (20:06)
[2019-04-11] MEDS ORDERED: VITAMIN D5000 UNIT PO (20:19)
[2019-04-11] MEDS ORDERED: TUMS500 MG PO (20:21)
[2019-04-11 20:48] LABS: Magnesium, Blood 1.7 mg/dL (1.6-2.4); Phosphorus, Blood 4.1 mg/dL (2.5-4.9)
[2019-04-11 20:50] LABS: International Normalized Ratio 1.03; Prothrombin Time Results 10.9 Sec (9.7-11.5)
[2019-04-11 21:08] LABS: Base Excess Venous -6.4 mmol/L; Bicarbonate Venous 19.6 mmol/L (24.0-30.0); PCO2 Venous 34.7 mmHg (38-42); PO2 Venous 57.1 mmHg (38-42); pH Blood Venous 7.35 (7.34-7.37)
[2019-04-11 22:05] LABS: D-Dimer, Quantitative 6.01 mg/L FEU (0.00-0.52)
[2019-04-12 05:20] LABS: BASOPHILS ABSOLUTE AUTO 0.02 K/mm3 (0.00-0.23); BASOPHILS PERCENT AUTO 0 % (0-2); EOSINOPHILS ABSOLUTE AUTO 0.16 K/mm3 (0.00-0.68); EOSINOPHILS PERCENT AUTO 2 % (0-6); Hematocrit 29.1 % (33.0-51.0); Hemoglobin 9.8 g/dL (11.5-16.0); Mean Corpuscular HGB 25.9 pg (26.0-34.0); Mean Corpuscular HGB Conc 33.7 g/dL (31.5-36.5); Mean Corpuscular Volume 77 fL (80-100); Mean Platelet Volume 11.3 fL (9.1-12.4); Platelet Count 150 K/mm3 (150-400); RDW Coefficient Variation 13.9 % (11.7-14.2); RDW Standard Deviation 39.1 fL (35.1-46.3); Red Blood Cell Count 3.78 M/mm3 (3.80-5.20); White Blood Cell Count 7.68 K/mm3 (4.00-11.30)
[2019-04-12 05:21] LABS: IMMATURE GRAN ABSOLUTE AUTO 0.14 K/mm3 (0.00-0.10); IMMATURE GRAN PERCENT AUTO 2 % (0-1); LYMPHOCYTES ABSOLUTE AUTO 2.36 K/mm3 (0.84-5.20); LYMPHOCYTES PERCENT AUTO 31 % (21-46); MONOCYTES ABSOLUTE AUTO 0.99 K/mm3 (0.16-1.47); MONOCYTES PERCENT AUTO 13 % (4-13); NEUTROPHILS ABSOLUTE AUTO 4.01 K/mm3 (1.96-9.15); NEUTROPHILS PERCENT AUTO 52 % (41-73)
[2019-04-12 05:39] LABS: Alanine Aminotransfer (ALT/SGP 54 U/L (12-78); Albumin, Blood 2.3 g/dL (3.4-5.0); Albumin/Globulin Ratio 0.5 (0.8-1.8); Alk Phos 209 U/L (50-136); Anion Gap 9 mmol/L (6-16); Aspartate Aminotrans (AST/SGOT 27 U/L (12-37); Bilirubin, Total 1.2 mg/dL (0.1-1.0); Blood Urea Nitrogen 5 mg/dL (8-24); Bun/Creatinine Ratio 7.9 (12.0-20.0); CO2, Blood 21 mmol/L (21-32); Calcium, Blood 6.4 mg/dL (8.5-10.1); Chloride, Blood 109 mmol/L (98-108); Creatinine, Blood 0.63 mg/dL (0.40-1.00); Globulin, Blood 4.3 g/dL (2.2-4.0); Glomerular Filtration Rate >60 (60-); Glucose, Blood 80 mg/dL (70-99); Potassium, Blood 3.4 mmol/L (3.5-5.5); Sodium, Blood 139 mmol/L (136-145); Total Protein, Blood 6.6 g/dL (6.4-8.2)
--- NOTE | 2019-04-12 07:45 | NUR ---
PT ADMITTED TO ICU 16 FROM ER. PT STOOD TO TRANSFER, & MOVED TO BED WO ANY DIFFICULTY. ORIENTED TO ROOM & CALL LIGHT. INSTRUCTED TO CALL FOR ASSIST OR IF NEED TO VOID. VSS, ON ROOM AIR, MONITOR SHOWS NSR 70'S. HEPARIN DOSE VERIFIED & INFUSING. MEDICATED W FENTANYL 50MCG, W SOME IMPROVEMENT, PT STATES FENTANYL GIVES SHORT TERM RELIEF. PAIN IS ABDOMEN & CHEST. 5 LAP PUNCTURE SITES TO ABD NOTED TO BE HEALING WELL, DRY, NO DRNG, NO REDDNESS & NO BRUISING, OPEN TO AIR. CONT TO MONITOR, CALL LIGHT IN REACH, REPORT TO DAYSHIFT.
--- NOTE | 2019-04-12 12:00 | NUR ---
REASSESSMENT: PAIN CONTROLLED AT THIS POINT. DENIES NAUSEA, DIARRHEA. NPO. HEPARIN GTT AT 17 UNITS/KG/HR. IS ON HER MENSES, DENIES ABNORMAL BLEEDING AT THIS TIME. GETTING UP TO TOILET WITH SBA, GAIT STEADY. EDUCATED PATIENT TO REPORT INCREASED VAGINAL BLEEDING IMMEDIATELY, VERBALIZED UNDERSTANDING.
--- NOTE | 2019-04-12 12:11 | NUR ---
CALL PLACED TO DR WHITE AND VOICEMAIL LEFT. PT REMAINS NPO UNTIL CINDY CONFIRMS POTENTIAL FOR TAKING PT IN FOR THROMBECTOMY TODAY.
--- NOTE | 2019-04-12 12:25 | NUR ---
CALLED AND SPOKE WITH DR WHITE'S MA IN THE OFFICE. SHE WILL DISCUSS PT'S CASE WITH HIM. AWAITING A RESPONSE.
[2019-04-12 12:41] LABS: Adenovirus Not Detected (NOT DETECT); Bordetella pertussis Not Detected (NOT DETECT); Chlamydophila pneumoniae Not Detected (NOT DETECT); Coronavirus 229E Not Detected (NOT DETECT); Coronavirus HKU1 Not Detected (NOT DETECT); Coronavirus NL63 Not Detected (NOT DETECT); Coronavirus OC43 Not Detected (NOT DETECT); Human Metapneumovirus Not Detected (NOT DETECT); Human Rhinovirus/Enterovirus Detected (NOT DETECT); Influenza A Not Detected (NOT DETECT); Influenza A/2009-H1 Not Detected (NOT DETECT); Influenza A/H1 Not Detected (NOT DETECT); Influenza A/H3 Not Detected (NOT DETECT); Influenza B Not Detected (NOT DETECT); Mycoplasma pneumoniae Not Detected (NOT DETECT); Parainfluenza Virus 1 Not Detected (NOT DETECT); Parainfluenza Virus 2 Not Detected (NOT DETECT); Parainfluenza Virus 3 Not Detected (NOT DETECT); Parainfluenza Virus 4 Not Detected (NOT DETECT); Respiratory Syncytial Virus Not Detected (NOT DETECT)
[2019-04-12 12:42] LABS: Source, Urine Clean Catch
[2019-04-12 12:49] LABS: Bilirubin, Urine Neg (Neg); Blood, Urine 2+ (Neg); Glucose Qualitative, Urine Neg (Neg); Ketones, Urine 4+ (Neg); Leukocyte Esterase, Urine Neg (Neg); Nitrite, Urine Neg (Neg); Protein, Urine Neg (Neg); Specific Gravity, Urine 1.015 (1.003-1.022); Urobilinogen, Urine 3+ (Normal)
[2019-04-12 12:57] LABS: Appearance, Urine Clear (Clear); Color, Urine Yellow (P-Yellow)
[2019-04-12 12:58] LABS: Bacteria Few /hpf; Red Blood Cells, Urine 0-2 /hpf (0-2); Squamous Epithelial Cells Few /hpf (Few); White Blood Cells, Urine 0-2 /hpf (0-5)
--- NOTE | 2019-04-12 13:00 | NUR ---
DR. DAVIS AT BEDSIDE FOR CONSULTATION.
--- NOTE | 2019-04-12 16:01 | NUR ---
SPOKE TO DR ARMSTRONG, REPORTED DR. WHITE'S VISIT WITH PATIENT AND PLAN TO KEEP HER ANOTHER COUPLE OF DAYS. REQUESTED CHANGE IN PAIN MEDS TO PO FOR BETTER PAIN CONTROL AND TO CHANGE STATUS TO PCU. PROVIDER STATED OK TO CHANGE STATUS TO PCU; PROVIDER WILL ADDRESS PAIN MEDICATIONS.
--- NOTE | 2019-04-12 16:10 | NUR ---
REASSESSMENT: PAIN AT ACCEPTABLE LEVEL WITH CURRENT REGIMEN. DENIES N/V/D. TOLERATING CLEAR LIQ DIET AND PO MEDS. HEPARIN GTT INFUSING AT 19 UNITS/KG/HR. RESP PANEL AND UA COLLECTED. GETTING UP TO TOILET WITH SBA. HAS BEEN CHANGED TO PCU STATUS.
--- NOTE | 2019-04-12 19:20 | NUR ---
ASSUME CARE: REPORT RECIEVED FROM OFF GOING RN SHEREE. MONITOR INTACT SHOWING SINUS RHYTHM HEART RATE 70'S LUNG SOUNDS CLEAR UPPER LOBES WITH DECREASED SOUNDS IN THE BASES. RESPIRATIONS REGULAR AND EASY ON ROOM AIR SPO2 95-97%. ABDOMEN SOFT TENDER , LAPRESCOPIC AREAS OPEN TO AIR. GAIT STEADY TO TOILET VOIDS PINK TINGED URINE IS CURRENTLLLY HAVING MENSE. REMINDED TO ALERT RN IF INCREASED BLEEDING STATES "OH I WILL". HARD AREA NOTED ON L HAND MARKED PREVIOUSLY. PREVIOUS IV SITE FROM SURGURY. CONTINUE TO MONITOR AND REPORT CHANGE IN PATIENT CONDITION.
--- NOTE | 2019-04-12 19:38 | NUR ---
SHIFT SUMMARY: A&O X 4 THIS SHIFT. TELEMETRY HAS BEEN NSR WITH NO ECTOPY. REPLACED POTASSIUM AND CALCIUM GLUCONATE. TOLERATING CL LIQ DIET. AFEBRILE. GETTING UP TO TOILET WITH SBA. REPORTS NO INCREASED BLEEDING D/T HEPARIN GTT, WHICH IS INFUSING AT 19 UNITS/KG/HR. PAIN ADEQUATELY CONTROLLED WITH CURRENT REGIMEN. RESTING COMFORTABLY.
--- NOTE | 2019-04-12 23:00 | NUR ---
INCREASED HEPARIN GTT PER ORDER CONTINUE TO MONITOR AND REPORT CHANGE IN PATIENT CONDITION.
[2019-04-13 05:10] LABS: Hematocrit 32.7 % (33.0-51.0); Hemoglobin 10.7 g/dL (11.5-16.0)
[2019-04-13 05:27] LABS: Albumin, Blood 2.4 g/dL (3.4-5.0); Anion Gap 9 mmol/L (6-16); Blood Urea Nitrogen 4 mg/dL (8-24); Bun/Creatinine Ratio 6.9 (12.0-20.0); CO2, Blood 23 mmol/L (21-32); Calcium, Blood 6.7 mg/dL (8.5-10.1); Chloride, Blood 105 mmol/L (98-108); Creatinine, Blood 0.58 mg/dL (0.40-1.00); Glomerular Filtration Rate >60 (60-); Glucose, Blood 73 mg/dL (70-99); Phosphorus, Blood 4.7 mg/dL (2.5-4.9); Potassium, Blood 3.4 mmol/L (3.5-5.5); Sodium, Blood 137 mmol/L (136-145)
--- NOTE | 2019-04-13 06:15 | NUR ---
SHIFT SUMMARY: REST QUIETLY WHEN UNDISTURBED. MONITOR INTACT SHOWING SINUS RHYTHM. HEART RATE 70'S. LUNG SOUNDS CLEAR UPPER LOBES DECREASED IN THE BASES. RESPIRATIONS REGULAR AND EASY. ON ROOM AIR. ABDOMEN TENDER , VOIDS ANA LUISA URINE.GAIT STEADY IN ROOM TO TOILET. ABDOMENAL INCISIONS OPEN TO AIR.CURRENTLY ON MENSES. HEPARING ADJUSTMENT TO 23UNITS/HR. CONTINUE TO MONITOR AND REPORT CHANGE IN PATIENT CONDITION
--- NOTE | 2019-04-13 08:11 | NUR ---
ASSUMED CARE: REPORT RECEIVED FROM THEE Marquis RN. ASSUMED CARE OF THIS PT AT APPROX 0700. ON ASSESSMENT, THE PT IS A&O, PLEASANT & COOPERATIVE. SHE DENIES PAIN & NAUSEA. VSS. LAP SITES x5 TO ABDOMEN ARE CDI, OPEN TO AIR. PT ON RA W/ O2 SATS > 92%. MONITOR SHOWS SR W/ HR 70s. ABD SOFT, TENDER TO PALPATION. PT VOIDS W/O DIFFICULTY. HEPARIN INFUSING PER PHARMACY MANAGEMENT & VERIFIED W/ OFFGOING RN PER EMAR. WILL CONTINUE TO MONITOR & UPDATE NEEDED.
--- NOTE | 2019-04-13 09:00 | NUR ---
DR COLUNGA: PROVIDER AT BEDSIDE TO SEE PT. DIET ADVANCED TO FULL LIQUID. NO OTHER CHANGES AT THIS TIME. WILL CONTINUE TO MONITOR & UPDATE NEEDED.
--- NOTE | 2019-04-13 17:55 | NUR ---
SHIFT SUMMARY: NO ACUTE CHANGES SINCE INITIAL ASSESSMENT. PT REMAINS A&O, PLEASANT & COOPERATIVE. SHE HAS RESTED WELL INTERMITTENTLY THIS SHIFT W/ C/O PAIN TO ABDOMEN x1, MEDS PER EMAR. LS ARE CLEAR T/O, PT ON RA W/ O2 SATS > 92%. MONITOR SHOWS SR W/ HR 70s, BP STABLE. ABD IS SOFT, TENDER TO PALPATION. LAP SITES REMAIN WNL. PT HAS HAD NO BM SINCE ADMIT, BT HYPOACTIVE x4. PT VOIDS W/O DIFFICULTY. HEPARIN INFUSING PER PHARMACY MANAGEMENT. WILL CONTINUE TO MONITOR & REPORT OFF TO ONCOMING RN.
--- NOTE | 2019-04-13 18:39 | NUR ---
Per admit trigger, I met with Dorys to offer information regarding ACP. She was very interested in completing an Advanced Directive. Provided education. she took information and plans on talking to her mother. Advised I would remain available to assist.
--- NOTE | 2019-04-13 20:00 | NUR ---
ASSUMED PT CARE AFTER BESIDE REPORT. PT IS AWAKE, ALERT CO NAUSEA & MILD ABD PAIN. ABLE TO BE UP IN ROOM INDEPENDENTLY. ON RA, NO RESP DISTRESS, VSS & MON SHOWS NSR. TAKING LIQ DIET, FINDS THAT SWEET FOODS MAKE HER FEEL UNWELL. HEPARIN GTT VERIFIED, AWAKE LAB DRAW FOR PTT. PT STATES THAT MINIMAL MENSES FLOW AT THIS TIME. WILL MED Destiny SERNA.
--- NOTE | 2019-04-13 22:45 | NUR ---
PT VISITED W FAMILY. MED AT THIS TIME W [employer] FOR CO ABD PAIN. PT STATES PASSING FLATUS, BUT HAS NOT HAD A REGULAR BM SINCE PROCEDURE, JUST MUCUS TYPE STOOL. WILL CONT TO MONITOR. HEPARIN GTT WAS ADJUSTED PER PHARM ORDER.
--- NOTE | 2019-04-14 04:28 | NUR ---
PT UP TO BR TO VOID, CO NAUSEA & HEADACHE. THINKS SHE MAY BE GETTING A MIGRAINE. MED W ZOFRAN, EYE MASK PROVIDED & WARM WASHCLOTH REQUESTED. VSS. CO ABD PAIN, (NOT WORSE) BUT NOT REQUESTING PAIN MED. PTT DRAWN ORDERED.
--- NOTE | 2019-04-14 06:13 | NUR ---
PT CO HEADACHE, THINKS SHE MAY BE HAVING A MIGRAINE. TEARFUL, EMOTIONAL & FEELING FRUSTRATED. MED W FENTANYL 50 MCG. TOLERATING ONLY SMALL AMTS OF PO INTAKE. ATTEMPTED TO REASSURE, ROOM LIGHTS REMAIN OFF, DOOR CLOSED, CALL LIGHT IN REACH.
[2019-04-14 08:21] LABS: Mean Platelet Volume 10.8 fL (9.1-12.4); Platelet Count 416 K/mm3 (150-400)
--- NOTE | 2019-04-14 08:39 | NUR ---
0730-ASSUMED CARE OF PT. PT IS ALERT AND ORIENTED. COMPLAINTS OF SEVERE MIGRAINE HEADACHES. WILL MEDICATE PT WITH FENTANYL. PT IS FEELING NAUSEOUS WELL. PT ON HEPARIN DRIP.
--- NOTE | 2019-04-14 11:23 | NUR ---
PT SEEN BY DR. COLUNGA @ 3903. UPDATED HER OF PT'S STATUS. THIS NURSE CALLED HER @ [phone] SCAN RESULT.
--- NOTE | 2019-04-14 12:28 | NUR ---
THIS NURSE DHOWED THE REPORT OF THE CT SCAN. HE STATED HE WILL REVIEW THE SCAN AND WILL CALL DR. COLUNGA OF HIS PLANS.
[2019-04-14 13:28] LABS: BASOPHILS ABSOLUTE AUTO 0.01 K/mm3 (0.00-0.23); BASOPHILS PERCENT AUTO 0 % (0-2); EOSINOPHILS ABSOLUTE AUTO 0.12 K/mm3 (0.00-0.68); EOSINOPHILS PERCENT AUTO 1 % (0-6); Hematocrit 28.6 % (33.0-51.0); Hemoglobin 9.5 g/dL (11.5-16.0); IMMATURE GRAN ABSOLUTE AUTO 0.09 K/mm3 (0.00-0.10); IMMATURE GRAN PERCENT AUTO 1 % (0-1); LYMPHOCYTES ABSOLUTE AUTO 1.94 K/mm3 (0.84-5.20); LYMPHOCYTES PERCENT AUTO 22 % (21-46); MONOCYTES ABSOLUTE AUTO 0.61 K/mm3 (0.16-1.47); MONOCYTES PERCENT AUTO 7 % (4-13); Mean Corpuscular HGB 25.4 pg (26.0-34.0); Mean Corpuscular HGB Conc 33.2 g/dL (31.5-36.5); Mean Corpuscular Volume 77 fL (80-100); Mean Platelet Volume 10.8 fL (9.1-12.4); NEUTROPHILS ABSOLUTE AUTO 6.19 K/mm3 (1.96-9.15); NEUTROPHILS PERCENT AUTO 69 % (41-73); Platelet Count 447 K/mm3 (150-400); RDW Coefficient Variation 13.8 % (11.7-14.2); RDW Standard Deviation 38.6 fL (35.1-46.3); Red Blood Cell Count 3.74 M/mm3 (3.80-5.20); White Blood Cell Count 8.96 K/mm3 (4.00-11.30)
[2019-04-14 13:55] LABS: Albumin, Blood 2.4 g/dL (3.4-5.0); Anion Gap 6 mmol/L (6-16); Blood Urea Nitrogen 3 mg/dL (8-24); Bun/Creatinine Ratio 4.7 (12.0-20.0); CO2, Blood 28 mmol/L (21-32); Calcium, Blood 6.6 mg/dL (8.5-10.1); Chloride, Blood 102 mmol/L (98-108); Creatinine, Blood 0.63 mg/dL (0.40-1.00); Glomerular Filtration Rate >60 (60-); Glucose, Blood 93 mg/dL (70-99); Phosphorus, Blood 5.1 mg/dL (2.5-4.9); Potassium, Blood 3.2 mmol/L (3.5-5.5); Sodium, Blood 136 mmol/L (136-145)
--- NOTE | 2019-04-14 16:50 | NUR ---
PT SEEN BY DR. LANDRUM. UPDATED HIM OF PT'S STATUS.
--- NOTE | 2019-04-14 17:34 | NUR ---
REPORT GIVEN TO KRYSTAL MEDEROS. PT WILL BE TRANSFERED TO ROOM PCU4.
--- NOTE | 2019-04-14 19:30 | NUR ---
CARE ASSUMED REPORT RECEIVED, CARE ASSUMED FROM KRYSTAL WAGGONER. PT UPDATED ON PLAN OF CARE AND AGREEABLE. VITALS STABLE. PT MEDICATED FOR PAIN SHE REPORTS 7/10 PAIN AND IS ANXIOUS ABOUT IT INCREASING WITH TRANSPORT [place] [facility].
--- NOTE | 2019-04-14 19:36 | NUR ---
DR. LANDRUM VISIT: REPORT FROM [facility] THAT DR. LANDRUM CAM IN TODAY AND LOOKED AT THE CT SCAN. STATED THIS PT NEEDS TO BE SHIPPED. BED ACQUIRED AT [facility]. PT WILL BE TRANSFERRED TO [facility] ICU 8C BED 4.
--- NOTE | 2019-04-14 19:43 | NUR ---
TRANSFER REQUEST SPOKE WITH JOSH AT [facility]. NO ESTIMATION ON WHAT TIME A TRANSPORT AMBULANCE WILL BE AVAILABLE. STATES THEY WILL CALL BACK WITH AN ESTIMATION ON TIME.
--- NOTE | 2019-04-14 20:44 | NUR ---
TRANSPORT DIEGOER FROM [facility] AT BEDSIDE TO TAKE PT TO [facility]. REPROT GIVEN. PT TRANSFERRED WITH HEPARIN AND NS WITH KCL INFUSING.
--- NOTE | 2019-04-14 20:51 | NUR ---
REPORT TO KRYSTAL ENGEL RECEIVING PATIENT AT [facility].
[2019-04-25] MEDS ORDERED: [UNRECOGNIZED DRUG - REMARK] PT (21:00)
[2019-04-25] MEDS ORDERED: ELIQUIS5 MG PT (21:01)
[2019-04-25] MEDS ORDERED: Calcitriol0.5 MCG PO (21:02)
[2019-04-25] MEDS ORDERED: Calcium Carbon500 M1 PT (21:02)
[2019-04-25] MEDS ORDERED: LEVO-T300 MCG PT (21:03)
[2019-04-25] MEDS ORDERED: SUPPORT237 ML PO (21:05)
[2019-04-25] MEDS ORDERED: OMEP20ER PO (21:05)
[2019-04-25] MEDS ORDERED: ONDA4ODT SL (21:06)
[2019-04-25] MEDS ORDERED: MIRALAX17 GM PT (21:08)
[2019-04-25] MEDS ORDERED: OXYC1L PT (21:08)
[2019-04-25] MEDS ORDERED: LITTLE REM40 MG/0.6 PT (21:09)
[2019-04-29] MEDS ORDERED: ACET325 PO (12:00)
[2019-04-29] MEDS ORDERED: PROC25S PR (12:01)
[2019-04-29] MEDS ORDERED: PROM25S PR (12:01)
== END 2019-04-14 20:40 | disposition short-term general hospital (02) | DRG 393 ==
LOC: ER 17:43 → ICUW 22:00 → ERHOLD 22:00 → ICUW 04-12 05:30
PROVIDERS: Emergency Medicine; Family Medicine; Nurse Practitioner Acute Care; Pharmacist; ADMIT Internal Medicine
DX: K95.89 Other complications of other bariatric procedure (principal); I81 Portal vein thrombosis; K65.1 Peritoneal abscess; E87.1 Hypo-osmolality and hyponatremia; Z87.891 Personal history of nicotine dependence; E89.0 Postprocedural hypothyroidism; E83.51 Hypocalcemia; E20.8 Other hypoparathyroidism; E87.6 Hypokalemia; N93.9 Abnormal uterine and vaginal bleeding, unspecified; E86.0 Dehydration; E55.9 Vitamin D deficiency, unspecified; G43.909 Migraine, unspecified, not intractable, without status migrainosus; E66.9 Obesity, unspecified; Z68.35 Body mass index [BMI] 35.0-35.9, adult
CPT/HCPCS: 0099U; 36415; 71045; 74160; 74177; 80053; 80069; 81001; 82330; 82803; 83605; 83690; 83735; 84100; 85014; 85018; 85025; 85049; 85379; 85384; 85610; 85730; 87040; 96361; 96365-59; 96366; 96367; 96375; 96376; 99285-25; A9270-GY; C1751; J0610; J1644; J2405; J2543; J3010; J3480; J7030; J7120; Q9967

== ENCOUNTER 2019-04-25 20:42 | Inpatient (IN) | payer OTHER ==
[~2019-04-25] VITALS: Ht 165.1 cm; Wt 89.8 kg
[~2019-04-25 20:42] MED LIST changes: +Calcitriol0.5 MCG PO; +LEVO-T300 MCG PO; +LIDOCAINE HCL30 ML TOP; +TUMS500 MG PO; +VITAMIN D5000 UNIT PO
[2019-04-25] MEDS ORDERED: [UNRECOGNIZED DRUG - REMARK] PT ×2 (21:00)
[2019-04-25] MEDS ORDERED: AMOCLA600S PT (21:01)
[2019-04-25] MEDS ORDERED: ELIQUIS5 MG PT ×2 (21:01)
[2019-04-25] MEDS ORDERED: Calcitriol0.5 MCG PO ×2 (21:02)
[2019-04-25] MEDS ORDERED: Calcium Carbon500 M1 PT ×2 (21:02)
[2019-04-25] MEDS ORDERED: LEVO-T300 MCG PT ×2 (21:03)
[2019-04-25] MEDS ORDERED: SUPPORT237 ML PO ×2 (21:05)
[2019-04-25] MEDS ORDERED: OMEP20ER PO ×2 (21:05)
[2019-04-25] MEDS ORDERED: ONDA4ODT SL ×2 (21:06)
[2019-04-25] MEDS ORDERED: MIRALAX17 GM PT ×2 (21:08)
[2019-04-25] MEDS ORDERED: OXYC1L PT ×2 (21:08)
[2019-04-25] MEDS ORDERED: LITTLE REM40 MG/0.6 PT ×2 (21:09)
[2019-04-25 21:14] LABS: Source, Urine Clean Catch
[2019-04-25 21:17] LABS: Bilirubin, Urine Neg (Neg); Blood, Urine 1+ (Neg); Glucose Qualitative, Urine Neg (Neg); Ketones, Urine Neg (Neg); Leukocyte Esterase, Urine 1+ (Neg); Nitrite, Urine Neg (Neg); Protein, Urine 2+ (Neg); Specific Gravity, Urine 1.015 (1.003-1.022); Urobilinogen, Urine NORM (Normal)
[2019-04-25 21:18] LABS: Appearance, Urine Hazy (Clear); Color, Urine Yellow (P-Yellow)
[2019-04-25 21:19] LABS: Red Blood Cells, Urine 0-2 /hpf (0-2)
[2019-04-25 21:20] LABS: Bacteria Mod /hpf; Squamous Epithelial Cells Few /hpf (Few)
[2019-04-25 22:05] LABS: BASOPHILS ABSOLUTE AUTO 0.07 K/mm3 (0.00-0.23); BASOPHILS PERCENT AUTO 1 % (0-2); EOSINOPHILS ABSOLUTE AUTO 0.27 K/mm3 (0.00-0.68); EOSINOPHILS PERCENT AUTO 2 % (0-6); Hemoglobin 10.1 g/dL (11.5-16.0); IMMATURE GRAN ABSOLUTE AUTO 0.35 K/mm3 (0.00-0.10); IMMATURE GRAN PERCENT AUTO 3 % (0-1); LYMPHOCYTES ABSOLUTE AUTO 2.25 K/mm3 (0.84-5.20); LYMPHOCYTES PERCENT AUTO 16 % (21-46); MONOCYTES ABSOLUTE AUTO 0.78 K/mm3 (0.16-1.47); MONOCYTES PERCENT AUTO 6 % (4-13); Mean Corpuscular HGB 25.9 pg (26.0-34.0); Mean Corpuscular HGB Conc 31.6 g/dL (31.5-36.5); Mean Platelet Volume 10.3 fL (9.1-12.4); NEUTROPHILS ABSOLUTE AUTO 10.53 K/mm3 (1.96-9.15); NEUTROPHILS PERCENT AUTO 74 % (41-73); Platelet Count 479 K/mm3 (150-400); RDW Coefficient Variation 15.3 % (11.7-14.2); RDW Standard Deviation 45.5 fL (35.1-46.3); White Blood Cell Count 14.25 K/mm3 (4.00-11.30)
[2019-04-25 22:06] LABS: Mean Corpuscular Volume 82 fL (80-100)
[2019-04-25 22:22] LABS: Albumin, Blood 2.6 g/dL (3.4-5.0); Albumin/Globulin Ratio 0.4 (0.8-1.8); Bilirubin, Total 0.5 mg/dL (0.1-1.0); Bun/Creatinine Ratio 8.9 (12.0-20.0); Calcium, Blood 7.4 mg/dL (8.5-10.1); Creatinine, Blood 1.69 mg/dL (0.40-1.00); Globulin, Blood 5.8 g/dL (2.2-4.0); Potassium, Blood 3.9 mmol/L (3.5-5.5); Total Protein, Blood 8.4 g/dL (6.4-8.2)
[2019-04-26] MEDS ORDERED: PHENERGAN25 MG PR (03:17)
[2019-04-26 12:12] LABS: Bun/Creatinine Ratio 7.2 (12.0-20.0); Calcium, Blood 6.9 mg/dL (8.5-10.1); Creatinine, Blood 1.52 mg/dL (0.40-1.00); Potassium, Blood 3.7 mmol/L (3.5-5.5)
--- NOTE | 2019-04-26 17:42 | NUR ---
TRANSFER NOTE RECEIVED HANDOFF REPORT FROM ED NURSE KIM. PT HAS A NG TUBE/DOBHOFF IN PLACE FOR TUBE FEEDINGS - 43" IN, SMALL INTESTINE. PT IS A&O X4, INDEPENDENT. UNABLE TO TOLERATE SMALL FLUSHES OR HER PRESCRIBED TUBE FEEDINGS. SHE DC'D FROM [facility] YESTERDAY WITH NG TUBE IN PLACE. HER PAIN IS UNCONTROLLED, I DID CALL THE HOSPITALIST AND GET IV FENTANYL ORDERED. IV FLUIDS ARE ORDERED AT 200 ML/HR.
[2019-04-27 05:12] LABS: BASOPHILS ABSOLUTE AUTO 0.06 K/mm3 (0.00-0.23); BASOPHILS PERCENT AUTO 1 % (0-2); EOSINOPHILS ABSOLUTE AUTO 0.38 K/mm3 (0.00-0.68); EOSINOPHILS PERCENT AUTO 4 % (0-6); Hematocrit 28.3 % (33.0-51.0); Hemoglobin 8.9 g/dL (11.5-16.0); IMMATURE GRAN ABSOLUTE AUTO 0.19 K/mm3 (0.00-0.10); IMMATURE GRAN PERCENT AUTO 2 % (0-1); LYMPHOCYTES ABSOLUTE AUTO 2.57 K/mm3 (0.84-5.20); LYMPHOCYTES PERCENT AUTO 24 % (21-46); MONOCYTES ABSOLUTE AUTO 0.71 K/mm3 (0.16-1.47); MONOCYTES PERCENT AUTO 7 % (4-13); Mean Corpuscular HGB Conc 31.4 g/dL (31.5-36.5); Mean Corpuscular Volume 80 fL (80-100); NEUTROPHILS ABSOLUTE AUTO 6.88 K/mm3 (1.96-9.15); NEUTROPHILS PERCENT AUTO 64 % (41-73); Platelet Count 358 K/mm3 (150-400); RDW Coefficient Variation 14.8 % (11.7-14.2); RDW Standard Deviation 43.2 fL (35.1-46.3); Red Blood Cell Count 3.56 M/mm3 (3.80-5.20); White Blood Cell Count 10.79 K/mm3 (4.00-11.30)
--- NOTE | 2019-04-27 06:15 | NUR ---
SHIFT SUMMARY A/O, ABLE TO MAKE NEEDS KNOWN. COOPERATIVE WITH CARE. CALLS AND ANSWERS QUESTIONS APPROPRIATELY. C/O PAIN/DISCOMFORT TO ABDOMEN; MEDICATED PER EMAR. PAIN MGMT REMAINS DIFFICULT. MINIMAL TOLERANCE TO MEDICATIONS PER TUBE WITH MINIMAL FLUSH. PATIENT/FAM CONCERNED ABOUT NUTRITION SHE HAD NOT TOLERATED FEEDINGS IN OVER 24 HOURS. SPOKE TO ON-CALL PHYSICIAN; ON-CALL STATED THAT ATTENDING WILL OVERSEE CARE IN THE AM AND ADDRESS SUCH MATTERS. TOLERATING SIPS/CHIPS. REMAINS INDEPENDENT IN THE ROOM. VSS/AFEBRILE. BED IN LOWEST POSITION. CALL LIGHT AND BELONGINGS WITHIN REACH. WCTM. REPORT TO ONCOMING RN.
[2019-04-27 06:27] LABS: Albumin, Blood 2.2 g/dL (3.4-5.0); Albumin/Globulin Ratio 0.4 (0.8-1.8); Bilirubin, Total 0.4 mg/dL (0.1-1.0); Bun/Creatinine Ratio 8.5 (12.0-20.0); Calcium, Blood 6.7 mg/dL (8.5-10.1); Creatinine, Blood 1.42 mg/dL (0.40-1.00); Globulin, Blood 4.9 g/dL (2.2-4.0); Potassium, Blood 3.6 mmol/L (3.5-5.5); Total Protein, Blood 7.1 g/dL (6.4-8.2)
--- NOTE | 2019-04-27 07:29 | NUR ---
MEDICAL EDUCATION SPECIALIST NOTIFIED OF CONSULT FOR PARENTERAL NURTRITION AND THAT PT CURRENTLY ONLY HAS IV ACCESS.
--- NOTE | 2019-04-27 11:29 | NUR ---
GI CONSULT CALLED IN TO DR. QUINN'S OFFICE.
--- NOTE | 2019-04-27 18:19 | NUR ---
SHIFT [facility]. A&OX4, INDEPENDENT IN ROOM. PT CONTINUES WITH PAIN AND NAUSEA WITH VOMMITTING. PAIN MANAGED WELL WITH CURRENT ORDERS. ADDITION OF PHENERGAN IV ADDED PER DR. DICKERSON WHEN ZOFRAN FREQUENCY WAS TOO LONG. PT REPORTS FEELING OF HUNGER. DR. QUINN CONSULT CALLED IN SHORTLY AFTER ORDER RECIEVED. CLINIMIX STARTED. -KRISHNA NG TUBE PATENT. NO NEW CHANGES OR CONCERNS.
--- NOTE | 2019-04-28 05:23 | NUR ---
SHIFT SUMMARY: 33 Y/O FEMALE, PLEASANT AND COOPERATIVE THIS SHIFT. SHE HAS HAD 1 EPISODE OF NAUSEA NO EMEMSIS, MEDICATED WITH BOTH ZOFRAN AND REGLAN TO RELEIVE. SHE HAS HAD NORCO X2 FOR PAIN IN THE ABDOMEN. 1 DOSE OF FENTANYL WELL. SHE HAS SLEPT WELL THROUGHOUT THE NIGHT. NGT REMAINED PATENT AND USED FOR ADMINISTRATION OF MEDICATIONS, IV REMAINED PATENT AND INFUSING CLINIMAX. NO OTHER ACUTE CHANGES OCCURRED THIS SHIFT. WILL REPORT TO DAY SHIFT RN.
[2019-04-28 12:53] LABS: Bun/Creatinine Ratio 15.7 (12.0-20.0); Calcium, Blood 7.2 mg/dL (8.5-10.1); Creatinine, Blood 1.27 mg/dL (0.40-1.00); Magnesium, Blood 2.1 mg/dL (1.6-2.4); Phosphorus, Blood 6.9 mg/dL (2.5-4.9); Potassium, Blood 3.8 mmol/L (3.5-5.5)
--- NOTE | 2019-04-28 17:50 | NUR ---
SUMMARY PT RESTING QUIETLY IN BED, PT STARTED ON SMALL AMOUNTS OF BOLUS TUBE FEEDS TODAY, MILD NAUSEA WITH NO VOMITING, PT HAS BEEN MED PER EMAR FOR PAIN AND NAUSEA, PT CONT WITH IV CLINIMIX AND LIPIDS, PT KOBI WELL, PT'S FAMILY HAS BEEN IN TO VISIT, PT INDEPENDENT IN THE ROOM, VSS, NO ACUTE CHANGES, WILL CONT TO MONITOR
--- NOTE | 2019-04-28 23:49 | NUR ---
TUBE FEEDING TUBE FEEDING SELF ADMINISTERED WITH ASSISTANCE OF RN. PT DID A BOLUS FEEDING AND MADE IT 40 ML IN AND FELT IF SHE WOULD NOT BE ABLE TO TOLERATE ANYMORE. PT STATED THAT SHE WOULD LIKE TO STOP FOR NOW AND TRY AGAIN LATER WHEN HER STOMACH DIDN'T FEEL SO FULL. PT FLUSHED TUBE OUT WITH 30 ML OF WATER AFTER FEED.
--- NOTE | 2019-04-29 04:50 | NUR ---
SHIFT SUMMARY PT REPORTS THAT SHE IS FEELING OVERALL BETTER THIS EVENING. HOWEVER, PT CONTINUES TO HAVE ABD PAIN AND NAUSEA. MEDICATED X 2 W/ 2 TABS NORCO AND X 1 W/ 25 MCG FENTANYL. ALL PO MEDICATIONS GIVEN PER TUBE. DOBHOFF IN PLACE, PATENT. PT HAD ONLY 40 ML OF FEEDING THIS EVENING, STATING THAT THIS WAS ALL SHE COULD TOLERATE. PT SELF ADMINISTERED BOLUS FEED. 3 SMALL SURGICAL SITES ON ABD. ALL SITES LOOK FREE FROM INFECTION. BOWEL TONES HYPOACTIVE. ABD TENDER TO TOUCH. MORE ON THE R SIDE THAN ON THE LEFT. VITAL SIGNS STABLE. NO OTHER ACUTE CHANGES. WILL CONTINUE TO MONITOR.
[2019-04-29 06:18] LABS: Albumin, Blood 2.6 g/dL (3.4-5.0); Albumin/Globulin Ratio 0.5 (0.8-1.8); Bilirubin, Total 0.4 mg/dL (0.1-1.0); Bun/Creatinine Ratio 15.3 (12.0-20.0); Calcium, Blood 7.6 mg/dL (8.5-10.1); Creatinine, Blood 1.24 mg/dL (0.40-1.00); Globulin, Blood 5.5 g/dL (2.2-4.0); Magnesium, Blood 2.2 mg/dL (1.6-2.4); Phosphorus, Blood 6.9 mg/dL (2.5-4.9); Potassium, Blood 4.8 mmol/L (3.5-5.5); Total Protein, Blood 8.1 g/dL (6.4-8.2)
[2019-04-29 06:30] LABS: BASOPHILS ABSOLUTE AUTO 0.04 K/mm3 (0.00-0.23); BASOPHILS PERCENT AUTO 0 % (0-2); EOSINOPHILS ABSOLUTE AUTO 0.22 K/mm3 (0.00-0.68); EOSINOPHILS PERCENT AUTO 2 % (0-6); Hematocrit 28.9 % (33.0-51.0); Hemoglobin 9.4 g/dL (11.5-16.0); IMMATURE GRAN ABSOLUTE AUTO 0.08 K/mm3 (0.00-0.10); IMMATURE GRAN PERCENT AUTO 1 % (0-1); LYMPHOCYTES ABSOLUTE AUTO 2.52 K/mm3 (0.84-5.20); LYMPHOCYTES PERCENT AUTO 18 % (21-46); MONOCYTES ABSOLUTE AUTO 0.73 K/mm3 (0.16-1.47); MONOCYTES PERCENT AUTO 5 % (4-13); Mean Corpuscular HGB 25.1 pg (26.0-34.0); Mean Corpuscular HGB Conc 32.5 g/dL (31.5-36.5); Mean Corpuscular Volume 77 fL (80-100); Mean Platelet Volume 10.3 fL (9.1-12.4); NEUTROPHILS ABSOLUTE AUTO 10.32 K/mm3 (1.96-9.15); NEUTROPHILS PERCENT AUTO 74 % (41-73); Platelet Count 356 K/mm3 (150-400); RDW Standard Deviation 41.5 fL (35.1-46.3); Red Blood Cell Count 3.74 M/mm3 (3.80-5.20); White Blood Cell Count 13.91 K/mm3 (4.00-11.30)
[2019-04-29] MEDS ORDERED: ACET325 PO ×2 (12:00)
[2019-04-29] MEDS ORDERED: PROC25S PR ×2 (12:01)
[2019-04-29] MEDS ORDERED: PROM25S PR ×2 (12:01)
--- NOTE | 2019-04-29 13:46 | NUR ---
SUMMARY/DISCHARGE PT DISCHARGED TO HOME, PT VERBALIZED UNDERSTANDING OF FOLLOW UPS AND MEDICATIONS, PT ABLE TO TOLERATE SMALL FREQUENT BOLUS FEEDINGS, DOBHOFF REMAINS IN PLACE, PT TAKEN OUT SAFELY VIA WHEELCHAIR
== END 2019-04-29 12:56 | disposition home or self-care (01) | DRG 393 ==
LOC: ER 20:42 → ERHOLD 20:43 → MEDS 04-26 15:20 → ENPENDDIS 04-29 11:30 → MEDS 04-29 12:56
PROVIDERS: Emergency Medicine; Family Medicine; ADMIT Hospitalist
DX: K95.01 Infection due to gastric band procedure (principal); I81 Portal vein thrombosis; N17.9 Acute kidney failure, unspecified; Z90.09 Acquired absence of other part of head and neck; Z87.891 Personal history of nicotine dependence; E20.8 Other hypoparathyroidism; I95.81 Postprocedural hypotension; G43.909 Migraine, unspecified, not intractable, without status migrainosus; E66.9 Obesity, unspecified; Z68.32 Body mass index [BMI] 32.0-32.9, adult; Z79.01 Long term (current) use of anticoagulants
CPT/HCPCS: 36415; 74177; 80048; 80053; 81001; 83690; 83735; 84100; 85025; 87086; 96361; 96374-59; 96375; 96376; 99285-25; A9270; A9270-GY; C9113; G0378; J0780; J2405; J2550; J2765; J3010; J3411; J7030; Q9967

== ENCOUNTER 2019-04-30 14:20 | Observation (INO) | payer OTHER ==
[~2019-04-30] VITALS: Ht 162.6 cm; Wt 86.6 kg
[~2019-04-30 14:20] MED LIST changes: +ACET325 PO; +AMOCLA600S PT; +Calcium Carbon500 M1 PT; +ELIQUIS5 MG PT; +LEVO-T300 MCG PT; +LITTLE REM40 MG/0.6 PT; +MIRALAX17 GM PT; +OMEP20ER PO; +ONDA4ODT SL; +OXYC1L PT; +PHENERGAN25 MG PR; +PROC25S PR; +PROM25S PR; +SUPPORT237 ML PO; +[UNRECOGNIZED DRUG - REMARK] PT
[2019-04-30 15:14] LABS: BASOPHILS ABSOLUTE AUTO 0.05 K/mm3 (0.00-0.23); BASOPHILS PERCENT AUTO 0 % (0-2); EOSINOPHILS ABSOLUTE AUTO 0.21 K/mm3 (0.00-0.68); EOSINOPHILS PERCENT AUTO 1 % (0-6); Hematocrit 33.3 % (33.0-51.0); Hemoglobin 10.8 g/dL (11.5-16.0); IMMATURE GRAN ABSOLUTE AUTO 0.11 K/mm3 (0.00-0.10); IMMATURE GRAN PERCENT AUTO 1 % (0-1); LYMPHOCYTES ABSOLUTE AUTO 1.99 K/mm3 (0.84-5.20); LYMPHOCYTES PERCENT AUTO 12 % (21-46); MONOCYTES ABSOLUTE AUTO 0.75 K/mm3 (0.16-1.47); MONOCYTES PERCENT AUTO 4 % (4-13); Mean Corpuscular HGB Conc 32.4 g/dL (31.5-36.5); Mean Platelet Volume 10.2 fL (9.1-12.4); NEUTROPHILS ABSOLUTE AUTO 14.03 K/mm3 (1.96-9.15); NEUTROPHILS PERCENT AUTO 82 % (41-73); Platelet Count 399 K/mm3 (150-400); RDW Coefficient Variation 15.3 % (11.7-14.2); RDW Standard Deviation 44.4 fL (35.1-46.3); Red Blood Cell Count 4.15 M/mm3 (3.80-5.20); White Blood Cell Count 17.14 K/mm3 (4.00-11.30)
[2019-04-30 15:17] LABS: Mean Corpuscular Volume 80 fL (80-100)
[2019-04-30 15:41] LABS: Albumin/Globulin Ratio 0.5 (0.8-1.8); Bilirubin, Total 0.7 mg/dL (0.1-1.0); Calcium, Blood 7.8 mg/dL (8.5-10.1); Creatinine, Blood 1.27 mg/dL (0.40-1.00); Globulin, Blood 6.3 g/dL (2.2-4.0); Potassium, Blood 4.3 mmol/L (3.5-5.5); Total Protein, Blood 9.3 g/dL (6.4-8.2)
[2019-04-30 21:38] LABS: Source, Urine Clean Catch
[2019-04-30 21:43] LABS: Bilirubin, Urine Neg (Neg); Blood, Urine 4+ (Neg); Glucose Qualitative, Urine Neg (Neg); Ketones, Urine 2+ (Neg); Leukocyte Esterase, Urine 1+ (Neg); Nitrite, Urine Neg (Neg); Protein, Urine 2+ (Neg); Urobilinogen, Urine NORM (Normal); pH, Urine 6.5 (5.0-8.0)
[2019-04-30 21:45] LABS: Appearance, Urine Clear (Clear); Color, Urine Yellow (P-Yellow)
[2019-04-30 21:51] LABS: Bacteria Few /hpf; Squamous Epithelial Cells Few /hpf (Few)
--- NOTE | 2019-04-30 22:03 | NUR ---
ADMISSION: PATIENT IS ORIENTED TO ROOM AND CALL BED. HEART RATE IS 107. PATIENT COMPLIANS OF ABD. PAIN 8/10 AND NAUSEA.
--- NOTE | 2019-05-01 04:36 | NUR ---
TRANSFER: ORDER IS OBTAINED TO [facility] TRANSFER PATIENT TO [facility]. REPORT IS CALLED TO FLOOR KRYSTAL FREEDMAN.
[2019-05-01 04:46] LABS: BASOPHILS ABSOLUTE AUTO 0.05 K/mm3 (0.00-0.23); BASOPHILS PERCENT AUTO 0 % (0-2); EOSINOPHILS ABSOLUTE AUTO 0.21 K/mm3 (0.00-0.68); EOSINOPHILS PERCENT AUTO 2 % (0-6); Hematocrit 28.8 % (33.0-51.0); Hemoglobin 9.1 g/dL (11.5-16.0); IMMATURE GRAN ABSOLUTE AUTO 0.07 K/mm3 (0.00-0.10); IMMATURE GRAN PERCENT AUTO 1 % (0-1); LYMPHOCYTES PERCENT AUTO 15 % (21-46); MONOCYTES ABSOLUTE AUTO 0.74 K/mm3 (0.16-1.47); MONOCYTES PERCENT AUTO 6 % (4-13); Mean Corpuscular HGB 24.9 pg (26.0-34.0); Mean Corpuscular HGB Conc 31.6 g/dL (31.5-36.5); Mean Corpuscular Volume 79 fL (80-100); Mean Platelet Volume 10.2 fL (9.1-12.4); NEUTROPHILS ABSOLUTE AUTO 8.79 K/mm3 (1.96-9.15); NEUTROPHILS PERCENT AUTO 76 % (41-73); Platelet Count 294 K/mm3 (150-400); RDW Coefficient Variation 15.6 % (11.7-14.2); RDW Standard Deviation 43.9 fL (35.1-46.3); Red Blood Cell Count 3.65 M/mm3 (3.80-5.20); White Blood Cell Count 11.66 K/mm3 (4.00-11.30)
--- NOTE | 2019-05-01 06:43 | NUR ---
TRANSFER: PATIENT IS TRANSFERED OFF UNIT @ 0520, VIA STRETCHER. MEDICATIONS WERE SENT TO PHARMACY. RECIPT IS AT FROM DESK FOR MOTHER TO HUMAN SERVICES ASSISTANT.
== END 2019-05-01 05:47 | disposition short-term general hospital (02) ==
LOC: ER 14:20 → MEDS 14:21
PROVIDERS: Physician Assistant; ADMIT Hospitalist
DX: R11.2 Nausea with vomiting, unspecified (principal); K55.069 Acute infarction of intestine, part and extent unspecified; K65.1 Peritoneal abscess; N17.9 Acute kidney failure, unspecified; G43.909 Migraine, unspecified, not intractable, without status migrainosus; E03.9 Hypothyroidism, unspecified; E66.9 Obesity, unspecified; Z79.01 Long term (current) use of anticoagulants; Z98.84 Bariatric surgery status; Z79.899 Other long term (current) drug therapy
CPT/HCPCS: 36415; 74022; 80053; 81001; 83605; 83690; 85025; 87077; 87086; 87186; 96361; 96365; 96375; 96376; 99284-25; G0378; J1170; J2405; J2550; J3010; J7042; J7120

== ENCOUNTER 2019-06-18 18:11 | Emergency (ER) | payer OTHER ==
[~2019-06-18] VITALS: Ht 165.1 cm; Wt 77.1 kg
[~2019-06-18 18:11] MED LIST changes: +Calcitriol1 MCG/ML PT
== END 2019-06-18 18:53 | disposition home or self-care (01) ==
LOC: ER 18:11
DX: Z43.1 Encounter for attention to gastrostomy (principal); E89.0 Postprocedural hypothyroidism; Z79.899 Other long term (current) drug therapy; Z79.01 Long term (current) use of anticoagulants; Z87.891 Personal history of nicotine dependence
CPT/HCPCS: 99282

== ENCOUNTER 2019-07-16 01:42 | Day surgery (SDC) | payer OTHER ==
[2019-07-16] MEDS ORDERED: TRAM50 PO (09:16)
== END 2019-07-16 11:12 | disposition home or self-care (01) ==
LOC: ATC 01:42
DX: E83.51 Hypocalcemia (principal); E89.0 Postprocedural hypothyroidism; Z79.899 Other long term (current) drug therapy
CPT/HCPCS: 82310; 96365; J0610; J7040

== ENCOUNTER 2019-08-30 11:53 | Day surgery (SDC) | payer OTHER ==
[2019-08-30 15:53] LABS: Anion Gap 6 mmol/L (6-16); Blood Urea Nitrogen 11 mg/dL (8-24); Bun/Creatinine Ratio 17.2 (12.0-20.0); CO2, Blood 30 mmol/L (21-32); Calcium, Blood 5.1 mg/dL (8.5-10.1); Chloride, Blood 105 mmol/L (98-108); Creatinine, Blood 0.64 mg/dL (0.40-1.00); Glomerular Filtration Rate >60 (60-); Glucose, Blood 101 mg/dL (70-99); Potassium, Blood 3.2 mmol/L (3.5-5.5); Sodium, Blood 141 mmol/L (136-145)
== END 2019-08-30 17:19 | disposition home or self-care (01) ==
LOC: ATC 11:53
PROVIDERS: Internal Medicine Endocrinology, Diabetes & Metabolism
DX: E83.51 Hypocalcemia (principal)
CPT/HCPCS: 80048; 96365; J0610; J7040

== ENCOUNTER 2019-09-14 00:23 | Day surgery (SDC) | payer OTHER ==
[~2019-09-14 00:23] MED LIST changes: -LEVO-T300 MCG PT
[2019-09-14] MEDS ORDERED: Oyster Shell C500 MG PO (13:43)
[2019-09-14] MEDS ORDERED: TUMS500 MG PO (13:44)
[2019-09-14 13:58] LABS: Anion Gap 7 mmol/L (6-16); Blood Urea Nitrogen 12 mg/dL (8-24); Bun/Creatinine Ratio 17.2 (12.0-20.0); CO2, Blood 29 mmol/L (21-32); Calcium, Blood 5.3 mg/dL (8.5-10.1); Chloride, Blood 106 mmol/L (98-108); Glomerular Filtration Rate >60 (60-); Glucose, Blood 72 mg/dL (70-99); Potassium, Blood 3.3 mmol/L (3.5-5.5); Sodium, Blood 142 mmol/L (136-145)
== END 2019-09-14 15:34 | disposition home or self-care (01) ==
LOC: ATC 00:23
PROVIDERS: Internal Medicine Endocrinology, Diabetes & Metabolism
DX: E83.51 Hypocalcemia (principal); K90.9 Intestinal malabsorption, unspecified; N17.9 Acute kidney failure, unspecified; E86.0 Dehydration; Z98.84 Bariatric surgery status; E89.0 Postprocedural hypothyroidism; Z79.899 Other long term (current) drug therapy
CPT/HCPCS: 80048; J0610; J7040